=== PATIENT | male | born 1990 | race Caucasian/White ===

== ENCOUNTER 2020-09-15 10:42 | Emergency (ER) | payer MEDICAID ==
[~2020-09-15] VITALS: Ht 180.3 cm; Wt 97.2 kg
--- NOTE | 2020-09-15 11:30 | NUR ---
PT'S GRANDMOTHER, CHICHI WHEELER, CALLED FOR PT UPDATE. GRANDMOTHER WAS TOLD PT IS STABLE AND AWAITING MD AT THIS TIME. CONTACT PHONE # GIVEN TO CALL WHEN APT READY TO COME HOME: [phone]
[2020-09-15] MEDS ORDERED: LORazepam 2 mg/ml vial IV ONE (11:55)
[2020-09-15] MEDS ORDERED: normal saline 1000ml 1,000 ML IV ONE (11:55)
[2020-09-15 12:16] LABS: EOSINOPHILS % (AUTO) 0.4 % (0-6); HEMOGLOBIN 16.5 g/dl (14.0-17.9); LYMPHOCYTES # (AUTO) 1.6 X10'3 (1.1-4.8); RED CELL DISTRIBUTION WIDTH 13.4 % (11.5-14.5)
[2020-09-15 12:18] LABS: BASOPHILS # (AUTO) 0.1 X10'3 (0-0.2); BASOPHILS % (AUTO) 0.6 % (0-1); HEMATOCRIT 47.4 % (42.0-52.0); LYMPHOCYTES % (AUTO) 16.8 % (21-51); MEAN CORPUSCULAR HEMOGLOBIN 31.4 PG (27.0-31.0); MEAN CORPUSCULAR HGB CONC 34.8 g/dL (33.0-36.5); MEAN CORPUSCULAR VOLUME 90.3 FL (78-98); MEAN PLATELET VOLUME 7.1 FL (7.4-10.4); MONOCYTES # (AUTO) 1.2 X10'3 (0-0.9); MONOCYTES % (AUTO) 12.7 % (2-12); NEUTROPHILS # (AUTO) 6.6 X10'3 (1.8-7.7); NEUTROPHILS % (AUTO) 69.5 % (42-75); PLATELET COUNT 240 X10'3 (140-440); RED BLOOD COUNT 5.25 X10'6 (4.70-6.10); WHITE BLOOD COUNT 9.6 X10'3 (4.5-11.0)
[2020-09-15] MEDS ORDERED: haloperidol lactate 5mg/ml inj IM ONE (12:25)
[2020-09-15 12:29] LABS: ALANINE AMINOTRANSFERASE 37 U/L (12-78); ALBUMIN 4.1 G/DL (3.4-5.0); ALBUMIN/GLOBULIN RATIO 1.1 (1.1-1.5); ALKALINE PHOSPHATASE 64 IU/L (46-116); ANION GAP 11 (8-16); ASPARTATE AMINO TRANSFERASE 34 U/L (10-37); BILIRUBIN,TOTAL 0.8 MG/DL (0.1-1.0); BLOOD UREA NITROGEN 15 MG/DL (7-18); BUN/CREATININE RATIO 12.4 (5.4-32.0); CALCIUM 9.1 MG/DL (8.5-10.1); CHLORIDE 102 MMOL/L (99-107); CREATININE 1.21 MG/DL (0.60-1.10); GLUCOSE 146 MG/DL (70-104); POTASSIUM 3.2 MMOL/L (3.5-5.1); SODIUM 139 MMOL/L (135-145); TOTAL CARBON DIOXIDE 26.4 MMOL/L (24-32); TOTAL PROTEIN 7.9 G/DL (6.4-8.2); eGFR 71 ML/MIN
[2020-09-15] MEDS ORDERED: OLAN5TAB5 PO (12:38)
[2020-09-15] MEDS ORDERED: FLUO20CA39 PO (12:38)
[2020-09-15 12:40] LABS: ETHANOL < 0.010 GM/DL (0.0-0.010)
--- NOTE | 2020-09-15 12:42 | NUR ---
PT GIVEN .5MG ATIVAN PER MD ORDERS, PT HAS BECOME MORE AGGITATED, ASKING FOR VODKA, RED BULL, FIRE BALL, ETC. PT ALSO STATING THAT HE IS NOW SUICIDAL. HALDOL ORDERED AND GIVEN PER MD ORDERS, MD AT BEDSIDE.
[2020-09-15 12:45] LABS: CLARITY,URINE CLEAR (Clear); COLOR,URINE STRAW (Yellow); GLUCOSE, URINE NEGATIVE (Neg); KETONES,URINE NEGATIVE (Neg); LEUKOCYTE ESTERASE ,URINE NEGATIVE (Neg); NITRITES, URINE NEGATIVE (Neg); OCCULT BLOOD,URINE NEGATIVE (Neg); PH,URINE 6.5 (4.8-8.0); PROTEIN,URINE NEGATIVE (Neg); UROBILINOGEN,URINE 0.2 E.U/dL (0.2-1.0)
[2020-09-15 12:48] LABS: UA COLLECTION TYPE VOIDED
[2020-09-15 12:50] LABS: URINE AMPHETAMINE SCREEN POSITIVE (Neg); URINE BARBITUATE SCREEN NEGATIVE (Neg); URINE BENZODIAZEPINES SCREEN NEGATIVE (Neg); URINE CANNABINOID SCREEN NEGATIVE (Neg); URINE COCAINE SCREEN NEGATIVE (Neg); URINE METHADONE SCREEN NEGATIVE (Neg); URINE OPIATE SCREEN NEGATIVE (Neg); URINE PHENCYCLIDINE SCREEN NEGATIVE (Neg)
--- NOTE | 2020-09-15 15:29 | NUR ---
PACKET FAXED TO [facility]
--- NOTE | 2020-09-15 16:26 | NUR ---
PT'S GRANDMOTHER CALLED FOR UPDATE, PT WAS ASLEEP AND WAS UNABLE TO GET PERMISSION TO SPEAK WITH PT. WHEN PT WOKE UP, HE WAS ASKED IF INFORMATION COULD BE SHARED WITH HIS GRANDMOTHER, PERMISSION GIVEN AND GRANDMOTHER CALLED TO GIVE UPDATE.
--- NOTE | 2020-09-15 17:36 | NUR ---
Report received from [facility]. Patient will be transfered to this [facility] in a few minutes.
--- NOTE | 2020-09-15 17:36 | NUR ---
ARIAN FROM [facility] WITH PT FOR EVALUATION
--- NOTE | 2020-09-15 18:00 | NUR ---
PT IS BEING RELEASED HOME BY [facility]. PT NOTIFIED AN GRANDMOTHER WAS CALLED FOR TRANSPORTATION HOME
[2020-09-15 18:04] VITALS: BP 138/78
[2020-09-15] MEDS ORDERED: OLANZapine 5mg rapidly disint. tablet PO SCH (21:00)
[2020-09-15] MEDS ORDERED: FLUoxetine 20mg capsule PO SCH (21:00)
== END 2020-09-15 18:19 | disposition home or self-care (01) ==
LOC: ER 10:43
DX: F32.9 Major depressive disorder, single episode, unspecified (principal); R00.0 Tachycardia, unspecified; F41.9 Anxiety disorder, unspecified; F20.9 Schizophrenia, unspecified; R45.851 Suicidal ideations; R45.1 Restlessness and agitation; I10 Essential (primary) hypertension
CPT/HCPCS: 36415; 80053; 80305; 80320; 81003; 84443; 85025; 93005; 96361; 96372; 96374; 99284; J1630; J2060; J7030